=== PATIENT | male | born 1950 | race Caucasian/White ===

== ENCOUNTER 2018-03-02 17:55 | Emergency (ER) | payer MEDICARE, OTHER ==
--- OUTSIDE RECORDS SUMMARY | 2018-03-02 18:14 | XMS REPORT | Continuity of Care Document ---
:1950 External Reference #:[id number] Author Name Terra Mullen NP Address [address] [place] [address] Care Team Providers Name Role Phone Dorota Akins NP Care Team Information Opthalmic Tech Unavailable Dorota Akins NP Primary Care Physician Unavailable Payers Type Date Identification Numbers Payment Provider Subscriber Policy Number: [id number] Medicare Colby Sanches PayID: [id number] [address] [place] [address] Policy Number: [id number] Lifetime [facility] Colby Sanches PayID: [id number] [address] [address] [place] [address] Advance Directives Description No Information Available Problems Description No Information Family History Date Family Member(s) Problem(s) Comments Father due to COPD () Father 73 Mother due to Cancer () Mother 69 First Brother 53 First Brother Unknown Social History Type Date Description Comments Sex Unknown Cigarette Use Quit 9 Years Ago ETOH Use Current Alcohol Use - 1-3 Days A Week. Recreational Drug Use Never Used Drugs Allergies, Adverse Reactions, Alerts Description No Known Drug Allergies Medications Medication Date Status Form Strength Qnty SIG Indications Ordering Provider Glimepiride 0 Active Tablets 4mg 1 po bid Unknown 000 Atorvastatin Active Tablets 40mg 1 by mouth Unknown Calcium 000 every day Pioglitazone Active Tablets 45mg take 1 Unknown HCL 000 tablet by mouth once daily Finasteride Active Tablets 5mg 1 tablet by Unknown 000 mouth daily for prostate Lisinopril Active Tablets 20mg 1 by mouth Unknown 000 every day Immunizations Description No Information Available Vital Signs Date Vital Result Comment 02/20/2018 8:11am Weight 232.00 lb Height 65 inches 5'5" BMI (Body Mass Index) 38.6 kg/m2 BP Systolic 147 mmHg BP Diastolic 75 mmHg Heart Rate 74 /min O2 % BldC Oximetry 98 % Body Temperature 97.4 F [place] Score 7 Pain Level 0 12/20/2017 2:30pm Weight 226.00 lb Height 65 inches 5'5" BMI (Body Mass Index) 37.6 kg/m2 BP Systolic 132 mmHg BP Diastolic 78 mmHg Heart Rate 81 /min O2 % BldC Oximetry 94 % Body Temperature 96.9 F Pain Level 0 12/01/2017 8:22am Weight 215.00 lb Height 65 inches 5'5" BMI (Body Mass Index) 35.8 kg/m2 BP Systolic 145 mmHg BP Diastolic 80 mmHg Heart Rate 69 /min O2 % BldC Oximetry 94 % Body Temperature 97.8 F [place] Score 5 Neck Circumference in inches 18 Pain Level 0 Results Description No Information Available Procedures Date Code Description Status 12/05/2017 71177 Sleep Stage 4 Or More Cpap Titra Completed Encounters Type Date Location Provider Dx Diagnosis Office Visit 02/20/2018 Main Office Terra Mullen G47.33 Obstructive sleep 8:15a BROOM MAKER apnea (adult) (pediatric) Office Visit 12/20/2017 Main Office Terra Mullen G47.33 Obstructive sleep 2:30p BROOM MAKER apnea (adult) (pediatric) Office Visit 12/01/2017 Main Office Darius Lin M.D G47.33 Obstructive sleep 8:30a apnea (adult) (pediatric) R06.83 Snoring E66.9 Obesity, unspecified Plan of Treatment No Information Available
--- OUTSIDE RECORDS SUMMARY | 2018-03-02 18:14 | XMS REPORT | Continuity of Care Document ---
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 Dorota Akins NP Primary Care Physician Unavailable Payers Type Date Identification Numbers Payment Provider Subscriber Policy Number: [id number] Medicare Colby Sanches PayID: [id number] [address] [facility] [place] [address] Policy Number: [id number] Lifetime Benefits [employer] Colby Sanches PayID: [id number] [address] [address] [place] [address] Advance Directives Description No Information Available Problems [...] Strength Qnty SIG Indications Ordering Provider Glimepiride Active Tablets 4mg 1 po bid Unknown [...] Oximetry 98 % Body Temperature 97.4 F [place] Score 7 Pain Level 0 12/20/2017 2:30pm [...] Oximetry 94 % Body Temperature 97.8 F [place] Score 5 Neck Circumference in inches 18 Pain Level 0 Results Description No Information Available Procedures Date Code Description Status 12/05/2017 46628 Sleep Stage 4 Or More Cpap Titra Completed Encounters Type Date Location Provider Dx Diagnosis Office Visit 12/20/2017 Main Office Terra Mullen, 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
--- NOTE | 2018-03-02 20:18 | UC ---
Ear Complaint HPI - HPI Summary HPI Summary: 67 year old male presents with several month history of left ear pain. States started over the summer and pain has been tolerable but over past few days has increased in intensity. Describes as "throbbing pressure". Nonradiating. Reports some chronic mild nasal congestion. Denies fever, chills, hearing loss, tinnitus, dizziness, vertigo, drainage, injury, sore throat, or dental pain. - History of Current Complaint Chief Complaint: UCEar Stated Complaint: LT EAR COMPLAINT Time Seen by Provider: 03/02/18 19:48 Hx Obtained From: Patient Pain Intensity: 3 - Allergies/Home Medications Allergies/Adverse Reactions: Allergies Allergy/AdvReac Type Severity Reaction Status Date / Time No Known Allergies Allergy Verified 03/02/18 18:44 Home Medications: Home Medications Atorvastatin* [Lipitor 10 MG*] 1 tab QPM 03/02/18 [History Confirmed 03/02/18] Glimepiride 1 tab BID 03/02/18 [History Confirmed 03/02/18] Lisinopril/HCTZ 10/.5(NF) [Zestoretic 10/.5(NF)] 1 tab DAILY 03/02/18 [ History Confirmed 03/02/18] Pioglitazone TAB* [Actos TAB*] 1 tab DAILY 03/02/18 [History Confirmed 03/02/18] PMH/Surg Hx/FS Hx/Imm Hx Endocrine History: Diabetes, Dyslipidemia Cardiovascular History: Hypertension Other Respiratory History: MAURY - Surgical History Surgical History: None - Social History Occupation: Employed Full-time Lives: With Family Alcohol Amount: "couple times a week" Substance Use Type: None Smoking Status (MU): Former Smoker Review of Systems All Other Systems Reviewed And Are Negative: Yes Constitutional: Negative: Fever, Chills Eyes: Negative: Drainage, Eye Redness ENT: Positive: Ear Ache, Nasal Discharge. Negative: Dental Pain, Sore Throat, Sinus Pain/Tenderness Respiratory: Negative: Shortness Of Breath, Cough Cardiovascular: Negative: Palpitations, Chest Pain Is Patient Immunocompromised?: No Physical Exam - Summary Physical Exam Summary: GENERAL APPEARANCE: Well developed, well nourished, alert and cooperative, and appears to be in no acute distress. EYES: Conjuctiva clear. No drainage. Vision is grossly intact. EARS: External auditory canals and tympanic membranes clear, hearing grossly intact. NOSE: Mild nasal congestion. No nasal discharge. THROAT: Oral cavity and pharynx normal. No inflammation, swelling, exudate, or lesions. Teeth and gingiva in good general condition. NECK: Neck supple, non-tender without lymphadenopathy. CARDIAC: Normal S1 and S2. No S3, S4 or murmurs. Rhythm is regular. There is no peripheral edema, cyanosis or pallor. Extremities are warm and well perfused. Capillary refill is less than 2 seconds. LUNGS: Clear to auscultation and percussion without rales, rhonchi, wheezing or diminished breath sounds. ABDOMEN: Positive bowel sounds. Soft, nondistended, nontender. No guarding or rebound. No masses or hepatosplenomegally. SKIN: Skin normal color, texture and turgor with no lesions or eruptions. Triage Information Reviewed: Yes Vital Signs: Initial Vital Signs Temp 97.2 F 03/02/18 18:47 Pulse 67 03/02/18 18:47 Resp 16 03/02/18 18:47 BP 127/52 03/02/18 18:47 Pulse Ox 99 03/02/18 18:47 Vital Signs Reviewed: Yes Ear Complaint Course/Dx - Course Course Of Treatment: 67 year old male presents with several month history of left ear pain. States started over the summer and pain has been tolerable but over past few days has increased in intensity. Describes as "throbbing pressure ". Nonradiating. Reports some chronic mild nasal congestion. Denies fever, chills, hearing loss, tinnitus, dizziness, vertigo, drainage, injury, sore throat, or dental pain. Afebrile. VSS. Exam unremarkable. Suspect left eustachian tube dysfunction. Will treat with fluticasone nasal spray. He currently sees Dr. Aguilar for his sleep apnea and wishes to follow up with him. Warning symptoms were reviewed. Verbalizes understanding and agrees with POC. - Differential Dx/Diagnosis Differential Diagnosis/HQI/PQRI: Cerumen Impaction, Otitis Externa, Otitis Media Provider Diagnosis: Dysfunction of left eustachian tube Discharge - Sign-Out/Discharge Documenting (check all that apply): Patient Departure All imaging exams completed and their final reports reviewed: No Studies - Discharge Plan Condition: Stable Disposition: HOME Prescriptions: Fluticasone NASAL SPRAY 50MCG* [Flonase NASAL SPRAY 50MCG*] 2 spray BOTH NARES DAILY #1 btl Patient Education Materials: Serous Otitis Media (ED) Referrals: Dorota Akins [Primary Care Provider] - Reinaldo Aguilar MD [Medical Doctor] - 7 Days (Call for appointment.) Additional Instructions: There was no evidence of an infection of your ear. I suspect that you may have a condition called eustachian tube dysfunction causing your discomfort. Start fluticasone nasal spray 2 sprays each nostril once a day. May take an over the counter pain medication such as acetaminophen (Tylenol) or ibuprofen (Advil, Motrin) according to directions as needed for pain. Follow up with Dr. Aguilar, ENT, in 1 week for further evaluation. Call for an appointment. Seek immediate medical attention in the emergency room if you have worsening of pain, dizziness, drainage or blood from the ear, or any worsening of symptoms. - Billing Disposition and Condition Condition: STABLE Disposition: Home
== END 2018-03-02 20:24 | disposition home or self-care (01) ==
LOC: UCCORT 17:55
DX: H69.92 Unspecified Eustachian tube disorder, left ear (principal); E11.9 Type 2 diabetes mellitus without complications; I10 Essential (primary) hypertension; E78.5 Hyperlipidemia, unspecified; Z79.899 Other long term (current) drug therapy; Z87.891 Personal history of nicotine dependence
CPT/HCPCS: 99202; G0463